=== PATIENT | male | born 1975 | race Caucasian/White ===

== ENCOUNTER 2017-07-01 09:25 | Emergency (ER) | payer BC ==
[~2017-07-01] VITALS: Ht 185.4 cm; Wt 99.8 kg
[2017-07-01 09:37] VITALS: BP 129/87
[2017-07-01] MEDS ORDERED: IBUPROFEN600 MG ORAL (10:38)
[2017-07-01 10:46] VITALS: BP 129/87
--- NOTE | 2017-07-01 10:56 | Emergency Room Report ---
History of Present Illness General Chief Complaint: Pain Source: Patient Present Illness HPI 42-year-old male presents ED for evaluation. Patient presents with right wrist pain. Has been there for 3 weeks. Denies any recent fall or trauma. States that he recently started playing tennis. Patient states he does use his wrist when he plays tennis. Pain as throbbing, 8/10, nonradiating. Worse with bending and flexing and extending the wrist. Denies any other injuries. No other aggravating relieving factors. Denies any other associated symptoms Allergies: Coded Allergies: LATEX (Verified Allergy, Unknown, 07/01/17) Patient History Past Medical History: none Past Surgical History: none Pertinent Family History: none Social History: Denies: smoking, alcohol use, drug use Immunizations: UTD Reviewed Nursing Documentation: PMH: Agreed, PSxH: Agreed Nursing Documentation-PMH Past Medical History: No Stated History Review of Systems All Other Systems: negative except mentioned in HPI Physical Exam Vital Signs Date Time Temp Pulse Resp B/P (MAP) Pulse Ox O2 Delivery O2 Flow Rate FiO2 07/01/17 09:32 97.8 78 18 129/87 96 Room Air 97.9 Sp02 EP Interpretation: reviewed, normal General Appearance: no apparent distress, alert, GCS 15, non-toxic Head: normocephalic Eyes: bilateral eye normal inspection, bilateral eye PERRL ENT: normal ENT inspection Neck: normal inspection Respiratory: normal inspection Cardiovascular #1: normal inspection Gastrointestinal: normal inspection Rectal: deferred Genitourinary: no CVA tenderness Musculoskeletal: tender - R wrist Neurologic: alert, oriented x3, responsive, motor strength/tone normal, sensory intact, speech normal Psychiatric: normal inspection Skin: normal inspection Lymphatic: normal inspection Procedures Splinting Splinting : Consent: Verbal Pre-Made Type: velcro Splint: wrist Pre-Proc Neuro Vasc Exam: normal Post-Proc Neuro Vasc Exam: normal Patient Tolerated: Well Complications: None Medical Decision Making Diagnostic Impression: Primary Impression: Wrist sprain Qualified Codes: S63.501A - Unspecified sprain of right wrist, initial encounter ER Course Hospital Course 42-year-old male presents ED complaining of right wrist pain Differential diagnoses include: Fracture, dislocation, sprain, contusion Clinical course Patient placed on stretcher. After initial history and physical, I ordered xrays of R wrist Xrays prelim read shows no acute fracture/dislocation. Based on presentation low suspicion for fracture. Likely sprain versus tendinitis given that patient started playing tennis and is using his wrist inappropriately while playing Placed in a wrist splint recommend ice, NSAIDS Diagnosis - wrist sprain Stable and discharged to home with prescription for Motrin. apply ice, keep elevated. weight bear as tolerated. Followup with PMD. Return to ED if symptoms recur or worsen Other X-Ray Diagnostic Results Other X-Ray Diagnostic Results : X-Ray ordered: R wrist # of Views/Limited Vs Complete: 3 View Indication: Pain EP Interpretation: Yes Interpretation: no dislocation, no soft tissue swelling, no fractures Impression: No acute disease Electronically Signed by: Electronically signed by Andrew Heath MD Last Vital Signs Date Time Temp Pulse Resp B/P (MAP) Pulse Ox O2 Delivery O2 Flow Rate FiO2 07/01/17 10:46 97.9 18 129/87 96 Room Air 97.9 07/01/17 09:32 78 Status: improved Disposition: HOME, SELF-CARE Condition: Stable Scripts Ibuprofen* (MOTRIN*) 600 Mg Tablet 600 MG ORAL Q8H Y for For Pain, #30 TAB 0 Refills Prov: ANDREW HEATH M.D. 07/01/17 Referrals: NOT CHOSEN [facility]/,REFERRING (PCP) Patient Instructions: Wrist Sprain With [facility] ANDREW HEATH M.D. Jul 01, 2017 10:56
--- NOTE | 2017-07-01 10:59 | Diagnostic Imaging Report ---
Indication: Pain Findings: 3 views of the right wrist were obtained. No acute fractures, malalignment, erosions or periostitis are identified. Soft tissues are unremarkable. Impression: No acute findings.
== END 2017-07-01 10:45 | disposition home or self-care (01) ==
LOC: EMR 10:36
DX: S63.501A Unspecified sprain of right wrist, initial encounter (principal); Y93.73 Activity, racquet and hand sports; Y92.9 Unspecified place or not applicable; Z91.040 Latex allergy status
CPT/HCPCS: 29260; 99283